=== PATIENT | male | born 1990 | race African-American/Black ===

== ENCOUNTER 2017-04-03 11:55 | Emergency (ER) | payer BC, OTHER ==
[2017-04-03] MEDS ORDERED: traMADol HCl 50 MG TAB ONE (14:36)
[2017-04-03] MEDS ORDERED: Methocarbamol 500 MG TAB PO SCH (14:45)
[2017-04-03 14:53] LABS: #Eosinphils 0.1 thou/uL (0.0-0.7); #Lymphocytes 1.7 thou/uL (1.20-3.40); #Monocytes 1.3 thou/uL (0.11-0.59); #Neutrophils 9.3 thou/uL (1.40-6.50); %Basophils 0.3 % (0.0-1.0); %Eosinophils 0.6 % (0.0-10.0); %Lymphocytes 13.9 % (21.0-51.0); %Monocytes 10.1 % (0.0-10.0); Hematocrit 49.2 % (42.0-52.0); Mean Platelet Volume 6.6 fL (7.4-10.4); White Blood Cell (WBC) Count 12.4 thou/uL (4.8-10.8)
[2017-04-03 15:00] LABS: Prothrombin Time 13.9 SEC (12.0-14.7)
[2017-04-03 15:12] LABS: Anion Gap 16 mmol/L (10-20); BUN (Urea Nitrogen) 10 mg/dL (8.9-20.6); Calc. Creatinine Clearance 0 mL/min (70-130); Calcium 9.9 mg/dL (7.8-10.44); Carbon Dioxide 26 mmol/L (22-29); Chloride 102 mmol/L (98-107); Estimated GFR-MDRD 78
--- NOTE | 2017-04-03 15:52 | RAD ---
EXAM: TWO VIEWS RIGHT FEMUR 04/03/17 HISTORY: Pain. COMPARISON: none. FINDINGS: No fracture. No cortical irregularity. No periosteal reaction. IMPRESSION: No fracture. POS: [facility]
== END 2017-04-03 17:45 | disposition home or self-care (01) ==
LOC: ERS 11:55
DX: M62.9 Disorder of muscle, unspecified (principal); R79.82 Elevated C-reactive protein (CRP); M79.1 Myalgia; J45.909 Unspecified asthma, uncomplicated; F17.210 Nicotine dependence, cigarettes, uncomplicated
CPT/HCPCS: 36415; 80048; 82550; 85025; 85610; 85652; 86140

== ENCOUNTER 2017-04-25 02:05 | Emergency (ER) | payer OTHER, SELFPAY ==
[2017-04-25 02:32] LABS: #Basophils 0.1 thou/uL (0.0-0.2); #Eosinphils 0.2 thou/uL (0.0-0.7); #Lymphocytes 2.3 thou/uL (1.20-3.40); #Monocytes 0.5 thou/uL (0.11-0.59); #Neutrophils 3.9 thou/uL (1.40-6.50); %Basophils 1.9 % (0.0-1.0); %Eosinophils 2.8 % (0.0-10.0); %Lymphocytes 32.5 % (21.0-51.0); Hematocrit 40.5 % (42.0-52.0); Mean Platelet Volume 6.5 fL (7.4-10.4); Red Blood Cell (RBC) Count 4.41 mill/uL (4.70-6.10)
[2017-04-25 02:51] LABS: ALT (SGPT) 11 U/L (8-55); AST (SGOT) 16 U/L (5-34); Alkaline Phosphatase 73 U/L (40-150); Anion Gap 11 mmol/L (10-20); BUN (Urea Nitrogen) 7 mg/dL (8.9-20.6); Bilirubin, Total 0.3 mg/dL (0.2-1.2); Calc. Creatinine Clearance 0 mL/min (70-130); Calcium 8.6 mg/dL (7.8-10.44); Carbon Dioxide 26 mmol/L (22-29); Chloride 106 mmol/L (98-107); Estimated GFR-MDRD Greater than 90; Globulin 2.7 g/dL (2.4-3.5); Protein, Total 6.6 g/dL (6.0-8.3)
[2017-04-25 02:55] LABS: Troponin I Less than 0.010 ng/mL (< 0.028)
[2017-04-25] MEDS ORDERED: Potassium Chloride 20 MEQ TAB ONE (04:01)
--- NOTE | 2017-04-25 08:21 | CT ---
PRELIMINARY REPORT/[facility]/EMERGENCY AFTER HOURS PROCEDURE: EXAM: CT Head Without Intravenous Contrast CLINICAL HISTORY: Altered mental status/memory loss; Pt was drowsy but arousable. TECHNIQUE: Axial computed tomography images of the head/brain without intravenous contrast. COMPARISON: No relevant prior studies available. FINDINGS: Brain: No acute findings. No hemorrhage. No significant white matter disease. No edema. Ventricles: No acute findings. No ventriculomegaly. Bones/joints: No acute findings. No acute fracture. Soft tissues: No acute findings. Sinuses: Unremarkable as visualized. No acute sinusitis. Mastoid air cells: Unremarkable as visualized. No mastoid effusion. IMPRESSION: No acute intracranial pathology. Thank you for allowing us to participate in the care of your patient. Dictated and Authenticated by: Earle Moyer MD 04/25/2017 3:02 AM Central Time ([place] \T\ [place]) FINAL REPORT CT OF THE BRAIN WITHOUT CONTRAST: Date: 04/25/17 COMPARISON: None. FINDINGS/IMPRESSION: I agree with the findings and impression given in the preliminary report per [facility] physician. No evid ence of acute intracranial abnormality. POS: [facility]
== END 2017-04-25 04:37 ==
LOC: ERS 02:05
DX: F10.129 Alcohol abuse with intoxication, unspecified (principal); E87.6 Hypokalemia; J45.909 Unspecified asthma, uncomplicated; F17.210 Nicotine dependence, cigarettes, uncomplicated
CPT/HCPCS: 36415; 70450; 80053; 82553; 84484; 85025; 93005

== ENCOUNTER 2018-08-13 20:13 | Emergency (ER) | payer BC, OTHER ==
[2018-08-13] MEDS ORDERED: Lidocaine 1% PF 5 ML VIAL ONE (20:23)
[2018-08-13] MEDS ORDERED: Adacel (T-DAP) 0.5 ML SYRINGE ONE ×2 (20:42→20:49)
[2018-08-13] MEDS ORDERED: Bacitracin Zinc 1 Packet ONE (20:45)
== END 2018-08-13 21:02 | disposition home or self-care (01) ==
LOC: ERS 20:13
DX: T16.2XXA Foreign body in left ear, initial encounter (principal); J45.909 Unspecified asthma, uncomplicated; F17.210 Nicotine dependence, cigarettes, uncomplicated
CPT/HCPCS: 90471; 90715; J2001